=== PATIENT | male | born 1940 | race Caucasian/White ===

== ENCOUNTER 2017-06-22 18:02 | Inpatient (IN) ==
[2017-06-22] MEDS ORDERED: Naloxone 0.4 MG/ML INJ IVP PRN (22:58)
[2017-06-22] MEDS ORDERED: traMADol 50 MG TABLET PO PRN (22:58)
[2017-06-22] MEDS ORDERED: Acetaminophen 325 MG TABLET PO PRN (22:58)
[2017-06-22] MEDS ORDERED: Albuterol 2.5 MG/3 ML NEBULIZER IH PRN (22:58)
--- NOTE | 2017-06-22 23:07 | Internal Med History&Physical ---
Date of Encounter: 06/22/17 Time of Encounter: 22:20 Internal Medicine - H&P: HPI Chief complaint: cough; wheeze; SOB Admitted From: Hospital to Hospital Transfer Plans for Post Hospital Care: Home History of present illness: Mr. Cox is a 77 year old male who presents in transfer from [facility] ER for concerns of COPD and pneumonia. He presented there after a 2 week history of coughing, wheezing, dyspnea, subjective fevers, and chills. He was found to have pneumonia on x-ray and clinical exam. He also had COPD exacerbation. He was transferred to [facility] for ongoing care and treatment. On my assessment of the patient, he states he feels much better. He was hypoxemic at [facility] and has improved significantly with oxygen placement. He also received some aerosols and has started to breathe better and has less coughing and wheezing now. He states he has a history of COPD and is a former smoker. He stopped smoking over 10 years ago. He has not seen a doctor in 10 years. He takes no medications and is very active. However, over the last 3 weeks or so, he has had difficulty breathing and has developed significant wheezing and coughing with exertion. He has had several ill contacts in recent weeks, including influenza. He denies myalgias or bony aches but is complaining of some subjective fevers. Appetite and fluid intake have been stable. He denies any vomiting or diarrhea. Past Med Surg Social Fam HX - Past Medical History Attestation: Yes The following information was validated with the patient. Source: patient, obtained from family, other ([facility] records) Medical history: COPD Psychiatric history: no psych history - Past Surgical History Surgical History: no surgical history - Social History Smoking Status: Former smoker Smokeless Tobacco Status: No Alcohol use: none Drug use: none Occupational status: retired Current living situation: Home - Independent Activity Level: Independent ambulation, Uses cane/walker Recent Out of Country Travel Within the Last 8 Weeks: No - Family History Father Hx Family Cardiac Disorders: Yes (htn) Hx Family Endocrine Disorder: Yes (dm) Mother Hx Family Cardiac Disorders: Yes (htn, chf) Internal Medicine - H&P: Meds No Known Home Drugs 06/22/17 [History] 3 Allergy/AdvReac Type Severity Reaction Status Date / Time Penicillins Allergy Hives Verified 06/22/17 16:31 Sulfa (Sulfonamide Allergy Hives Verified 06/22/17 16:31 Antibiotics) - Constitutional Constitutional: chills, fatigue, fever(s), no night sweats - EENT Eyes: no blurry vision, no change in vision Ears: no ear pain, no tinnitus Nose, mouth and throat: no nasal congestion, no sinus pressure, no sore throat - Cardiovascular Cardiovascular ROS IM: no chest pain, no edema, no orthopnea, no paroxysmal nocturnal dyspnea, no syncope - Respiratory Respiratory: cough, dyspnea, wheezing, chest congestion, excessive phlegm production, change in phlegm color, no hemoptysis - Gastrointestinal Gastrointestinal: no abdominal pain, no diarrhea, no heartburn, no hematemesis, no hematochezia, no melena, no nausea, no vomiting - Genitourinary Genitourinary ROS male: no dysuria, no flank pain, no hematuria - Musculoskeletal Musculoskeletal ROS IM: arthralgias, no back pain, no myalgias - Integumentary Integumentary IM: no rash, no jaundice - Neurological Neurological ROS: no dizziness, no focal weakness, no frequent falls, no headache(s) - Psychiatric Psychiatric: no anxiety, no depression - Endocrine Endocrine IM: no polydipsia, no polyuria - Hematologic/Lymphatic Hematologic/Lymphatic: no easy bruising, no lymphadenopathy - Allergic/Immunologic Allergic/Immunologic: wheezing, no GI upset with certain foods - Constitutional Vitals: Temp Pulse Resp BP Pulse Ox 99.4 F 105 16 136/70 91 06/22/17 20:22 06/22/17 20:22 06/22/17 20:22 06/22/17 20:22 06/22/17 20:22 General appearance: Present: cooperative, A&O X 3, pleasant, no acute distress, answers questions appropriately - Head Head exam: Present: atraumatic, normal inspection - Eye Eye exam: Present: EOMI, PERRL. Absent: scleral icterus Pupils: Present: normal accommodation - ENT ENT exam: Present: normal exam, normal oropharynx - Neck Neck exam general surgery: Present: full ROM, supple. Absent: tenderness, nuchal rigidity, thyromegaly - Respiratory Respiratory exam: Present: prolonged expiratory phase, rales (left base), respiratory distress (mild), rhonchi, wheezes, tachypnea. Absent: chest wall tenderness - Cardiovascular Cardiovascular exam: Present: distant heart sounds, RRR, +S1, +S2. Absent: diastolic murmur, systolic murmur - GI/Abdominal GI/Abdominal exam: Present: normal bowel sounds, soft. Absent: guarding, hepatomegaly, mass, rebound, splenomegaly, tenderness - Extremities Exam Extremities exam: Present: normal capillary refill, warm, radial pulses palpable and symmetrical. Absent: joint swelling, pedal edema, tenderness - Back Exam Back exam: Present: normal inspection. Absent: CVA tenderness (L), CVA tenderness (R) - Neurological Exam Neurological exam: Present: alert, CN II-XII intact, oriented X3, no focal deficits - Psychiatric Psychiatric exam: Present: normal affect, normal mood - Skin Skin exam: Present: dry, warm. Absent: rash Internal Med - H&P Results - Labs Labs: I reviewed his labs from [facility] and they include the following: WBC 12.5 Hemoglobin 12.0 Hematocrit 34.4 Platelet count 382 Sodium 136 Potassium 3.8 Chloride 99 Carbon dioxide 31 BUN 13 Creatinine 0.72 Glucose 127 - Diagnostic Studies Chest x-ray Status: image reviewed by me (LLL infiltrate) - Assessment and plan (1) Pneumonia Current Visit: Yes Status: Acute Assessment and plan: 1. Patient had blood cultures drawn at [facility] and received a dose of antibiotics there. 2. Continue oxygen and IV antibiotics and follow clinically. 3. Aerosols as needed for wheezing. Qualifiers: Pneumonia type: due to unspecified organism Laterality: left Lung location: lower lobe of lung Qualified Code(s): J18.1 - Lobar pneumonia, unspecified organism (2) Acute exacerbation of chronic obstructive pulmonary disease (COPD) Current Visit: Yes Status: Acute Assessment and plan: 1. Will treat with IV steroids, oxygen, and aerosols (scheduled and PRN). 2. Monitor clinically and adjust meds as needed. 3. Patient may require home oxygen. 4. Patient has no PCP and will need referral for ongoing primary care. (3) DVT prophylaxis Current Visit: Yes Status: Acute Assessment and plan: 1. Heparin SQ.
[2017-06-22] MEDS ORDERED: Ipratropium/Albuterol Neb 3 ML ONE (23:52)
[2017-06-22] MEDS: Ipratropium/Albuterol Neb 3 ML IH SCH (23:54)
[2017-06-23] MEDS: methylPREDNISolone 125 MG/2 ML VIAL IVP SCH ×2 (00:04→07:31)
[2017-06-23] MEDS: *HR* Heparin 5,000 UNIT/ML VIAL SQ SCH ×3 (00:04→16:35)
[2017-06-23] MEDS: Ipratropium/Albuterol Neb 3 ML IH SCH ×6 (03:55→23:47)
[2017-06-23 04:41] LABS: Basophils % 0.2 %; Hematocrit 38.9 % (37.5-50.1); Hemoglobin 12.7 g/dL (12.9-16.9); Immature Granulocytes % 0.9 % (0-4); Lymphocytes # 0.6 K/mcL (0.6-4.6); Lymphocytes % 5.2 %; Mean Corpuscular HGB Conc 32.6 g/dL (31.6-35.5); Mean Corpuscular Hemoglobin 31.8 pg (28.0-33.3); Mean Corpuscular Volume 97.3 fL (83.0-100.0); Mean Platelet Volume 9.4 fL (9.4-12.4); Monocytes # 0.2 K/mcL (0.0-1.3); Monocytes % 1.9 %; Neutrophils # 10.4 K/mcL (1.6-8.9); Platelet Count 397 K/mcL (140-400); Red Cell Distribution Width 12.5 % (11.5-14.5); Segmented Neutrophils % 91.8 %
[2017-06-23 04:56] LABS: Alanine Aminotransferase 22 Units/L (7-52); Albumin 3.6 g/dL (3.5-5.7); Albumin/Globulin Ratio 0.9 (1.1-2.2); Alkaline Phosphatase 65 Units/L (34-104); Aspartate Amino Transferase 18 Units/L (13-39); BUN/Creatinine Ratio 17 (6-26); Bilirubin,Total 0.3 mg/dL (0.3-1.0); Blood Urea Nitrogen 12 mg/dL (8-23); Calcium 8.9 mg/dL (8.6-10.3); Carbon Dioxide 39 mEq/L (23-29); Chloride 100 mEq/L (98-107); Globulin 3.8 g/dL (2.4-3.5); Glucose 220 mg/dL (70-105); Magnesium 2.2 mg/dL (1.6-2.6); Osmolality,Calculated 297 (280-300); Potassium 3.9 mEq/L (3.5-5.1); Sodium 140 mEq/L (136-145); Total Protein 7.4 g/dL (6.4-8.9); eGFR For African Americans > 60 (> 60); eGFR For Non-African Americans > 60 (> 60)
[2017-06-23] MEDS: Levofloxacin 500 MG/100 ML 500 MG/100 ML BAG IVPB SCH (07:31)
--- NOTE | 2017-06-23 11:15 | Internal Med Progress Note ---
Date of Encounter: 06/23/17 Time of Encounter: 09:10 - Assessment and plan (1) Pneumonia Current Visit: Yes Status: Inactive Assessment and plan: Pt with fatigue, productive cough, fever, chills, and increasing SOB 1 week prior to admission. Patchy bibasilar airspace disease, left greater than right. Findings may represent pneumonia. Mild leukocytosis. no fever, tachycardia. Does not meet SIRs or Sepsis criteria. Pt is requiring supplemental 02, does not normally require 02. Lungs with faint wheezing in posterior lung watkins. 02 as needed to maintain sats > 92% Continue IV antibiotics, bronchodilators, and IV steroids Guaifenesin prn cough Monitor labs and vital signs. Qualifiers: Pneumonia type: due to unspecified organism Laterality: left Lung location: lower lobe of lung Qualified Code(s): J18.1 - Lobar pneumonia, unspecified organism (2) Acute exacerbation of chronic obstructive pulmonary disease (COPD) Current Visit: Yes Status: Acute Assessment and plan: Plan as above. (3) DVT prophylaxis Current Visit: Yes Status: Acute Assessment and plan: Heparin SQ. (4) Acute respiratory failure Current Visit: Yes Status: Acute Assessment and plan: Pt is requiring supplemental 02 to maintain sats > 92%. Titrate prn. Pt does not have home 02. Qualifiers: Respiratory failure complication: unspecified whether with hypoxia or hypercapnia Qualified Code(s): J96.00 - Acute respiratory failure, unspecified whether with hypoxia or hypercapnia - Time Spent With Patient Total time spent is greater than 50% in coordination of care (as documented) at patient's floor/unit and/or counseling patient: less than 15 minutes - Subjective Interval history: Pt was seen and assessed at bedside at 0910. Pt is alert and awake, states that he is feeling tired, but better than on arrival. He still reports productive cough an SOB, but is better than on arrival. Pt states that he lives at home alone and does not really have family or friends who can help him. Patient is agreeable to discussing home health after discharge. He denies any headache, blurred vision, nausea or vomiting, no chest pain, no abdominal pain. - Constitutional Vitals: Temp Pulse Resp BP Pulse Ox 98.5 F 91 16 143/70 93 06/23/17 11:08 06/23/17 11:08 06/23/17 11:08 06/23/17 11:08 06/23/17 11:08 General appearance: Present: cooperative, A&O X 3, pleasant, no acute distress, answers questions appropriately - Head Head exam: Present: atraumatic, normal inspection, normocephalic - Eye Eye exam: Present: normal appearance, conjuntiva pink, sclera anicteric - Neck Neck exam general surgery: Present: supple, trachea midline. Absent: lymphadenopathy - Respiratory Respiratory exam: Present: CTAB. Absent: accessory muscle use, rales, rhonchi, wheezes - Cardiovascular Cardiovascular exam: Present: RRR, +S1, +S2. Absent: diastolic murmur, gallop, rubs, systolic murmur - GI/Abdominal GI/Abdominal exam: Present: normal bowel sounds, soft. Absent: distended, hepatomegaly, tenderness - Extremities Exam Extremities exam: Present: normal capillary refill, normal inspection, warm, radial pulses palpable and symmetrical. Absent: calf tenderness, cyanotic, pedal edema, tenderness - Neurological Exam Neurological exam: Present: alert, oriented X3, no focal deficits. Absent: facial droop, speech deficit - Skin Skin exam: Present: dry, intact, normal color, warm. Absent: rash Internal Medicine: Result - Labs CBC & Chem 7: 06/23/17 04:12 06/23/17 04:12 Labs: Short CBC 06/23/17 Range/Units 04:12 WBC 11.3 H (4.3-11.1) K/mcL Hgb 12.7 L (12.9-16.9) g/dL Hct 38.9 (37.5-50.1) % Plt Count 397 (140-400) K/mcL Neutrophils # 10.4 H (1.6-8.9) K/mcL BMP 06/23/17 04:12 Sodium 140 Potassium 3.9 Chloride 100 Carbon Dioxide 39 H BUN 12 Creatinine 0.72 Glucose 220 H Calcium 8.9 Liver Function 06/23/17 Range/Units 04:12 Total Bilirubin 0.3 (0.3-1.0) mg/dL AST 18 (13-39) Units/L ALT 22 (7-52) Units/L Alkaline Phosphatase 65 (34-104) Units/L Albumin 3.6 (3.5-5.7) g/dL Consult Discharge Plan - Plan Referrals: NONE,PCP [Primary Care Provider] - [facility],NADJA [Other]
[2017-06-23] MEDS: MethylPREDNISolone 40 MG/ML VIAL IVP SCH (16:35)
[2017-06-23] MEDS ORDERED: Melatonin 3 MG TABLET PO PRN (20:44)
[2017-06-24] MEDS: MethylPREDNISolone 40 MG/ML VIAL IVP SCH ×3 (00:06→18:30)
[2017-06-24] MEDS: Ipratropium/Albuterol Neb 3 ML IH SCH ×6 (03:51→23:31)
[2017-06-24 05:17] LABS: Basophils % 0.2 %; Hematocrit 33.4 % (37.5-50.1); Hemoglobin 11.3 g/dL (12.9-16.9); Immature Granulocytes % 1.2 % (0-4); Lymphocytes # 0.7 K/mcL (0.6-4.6); Lymphocytes % 2.8 %; Mean Corpuscular HGB Conc 33.8 g/dL (31.6-35.5); Mean Corpuscular Hemoglobin 32.9 pg (28.0-33.3); Mean Corpuscular Volume 97.4 fL (83.0-100.0); Mean Platelet Volume 9.8 fL (9.4-12.4); Monocytes # 0.8 K/mcL (0.0-1.3); Monocytes % 3.4 %; Neutrophils # 22.3 K/mcL (1.6-8.9); Platelet Count 412 K/mcL (140-400); Red Blood Count 3.43 M/mcL (4.19-5.50); Red Cell Distribution Width 12.6 % (11.5-14.5); Segmented Neutrophils % 92.4 %
[2017-06-24 05:31] LABS: Basophils # 0.1 K/mcL (0.0-0.2)
[2017-06-24 05:42] LABS: BUN/Creatinine Ratio 28 (6-26); Blood Urea Nitrogen 18 mg/dL (8-23); Carbon Dioxide 30 mEq/L (23-29); Chloride 104 mEq/L (98-107); Potassium 4.7 mEq/L (3.5-5.1); Sodium 140 mEq/L (136-145)
[2017-06-24 05:43] LABS: Calcium 8.6 mg/dL (8.6-10.3); Glucose 168 mg/dL (70-105); Osmolality,Calculated 296 (280-300); eGFR For African Americans > 60 (> 60); eGFR For Non-African Americans > 60 (> 60)
[2017-06-24 05:59] LABS: Platelet Estimate Normal (Normal)
[2017-06-24] MEDS: *HR* Heparin 5,000 UNIT/ML VIAL SQ SCH ×2 (06:07→18:30)
[2017-06-24] MEDS: Levofloxacin 500 MG/100 ML 500 MG/100 ML BAG IVPB SCH (09:42)
--- NOTE | 2017-06-24 14:31 | Internal Med Progress Note ---
Date of Encounter: 06/24/17 Time of Encounter: 10:10 - Assessment and plan (1) Pneumonia Current Visit: Yes Status: Inactive Assessment and plan: Pt with fatigue, productive cough, fever, chills, and increasing SOB 1 week prior to admission. Improved. Pt reports STAPLETON, overall fatigue, productive cough, wheezing still. Patchy bibasilar airspace disease, left greater than right. Findings may represent pneumonia. Increased leukocytosis, likely due to IV steroids, which have been decreased. no fever, tachycardia. Pt is requiring supplemental 02, does not normally require 02. Will walk test tomorrow prior to discharge. Lungs with faint wheezing in all lung wtakins. 02 as needed to maintain sats > 92% Continue IV antibiotics, bronchodilators, and IV steroids Guaifenesin prn cough Monitor labs and vital signs. Qualifiers: Pneumonia type: due to unspecified organism Laterality: left Lung location: lower lobe of lung Qualified Code(s): J18.1 - Lobar pneumonia, unspecified organism (2) Acute exacerbation of chronic obstructive pulmonary disease (COPD) Current Visit: Yes Status: Acute Assessment and plan: Plan as above. (3) DVT prophylaxis Current Visit: Yes Status: Acute Assessment and plan: Heparin SQ TID. Pt is also ambulatory. (4) Acute respiratory failure Current Visit: Yes Status: Acute Assessment and plan: Pt is requiring supplemental 02 to maintain sats > 92%. Titrate prn. Pt does not have home 02, will walk test tomorrow if he cannot be weaned prior to discharge. Qualifiers: Respiratory failure complication: unspecified whether with hypoxia or hypercapnia Qualified Code(s): J96.00 - Acute respiratory failure, unspecified whether with hypoxia or hypercapnia (5) Dyspnea on exertion Current Visit: Yes Status: Acute Assessment and plan: Pt reports new onset STAPLETON since becoming ill. Pt is requiring supplemental 02, will try to wean prior to discharge. Plan as above. (6) Fatigue Current Visit: Yes Status: Acute Assessment and plan: Likely secondary to pneumonia. Pt states that he normally gets around well at home and cares for himself without difficulty. Pt with new fatigue and STAPLETON. Pt stats that he lives alone and believes that he may have difficuty at home after discharge. Pt has been given a list of home health agencies and has spoken with SW. Qualifiers: Fatigue type: unspecified Qualified Code(s): R53.83 - Other fatigue - Time Spent With Patient Total time spent is greater than 50% in coordination of care (as documented) at patient's floor/unit and/or counseling patient: less than 15 minutes - Subjective Interval history: Pt was seen and assessed at bedside at 1010. Pt is alert and awake, states that he is feeling better today. Pt states that he has been up walking in the hallway with his daughter and gets SOB. Will assess pt for home 02 tomorrow. Pt remains wheezy in all lung watkins. STates that he and his daughter will make a decision about home health today so we can start working on it today. He denies any headache, blurred vision, nausea or vomiting, no chest pain, no abdominal pain. - Constitutional Vitals: Temp Pulse Resp BP Pulse Ox 98.3 F 95 17 124/68 95 06/24/17 10:59 06/24/17 10:59 06/24/17 11:35 06/24/17 10:59 06/24/17 11:35 General appearance: Present: cooperative, A&O X 3, pleasant, no acute distress, answers questions appropriately - Head Head exam: Present: atraumatic, normal inspection, normocephalic - Eye Eye exam: Present: normal appearance, conjuntiva pink, sclera anicteric - Neck Neck exam general surgery: Present: normal inspection, supple, trachea midline. Absent: lymphadenopathy - Respiratory Respiratory exam: Present: CTAB. Absent: accessory muscle use, rales, rhonchi, wheezes - Cardiovascular Cardiovascular exam: Present: RRR, +S1, +S2. Absent: diastolic murmur, gallop, rubs, systolic murmur - GI/Abdominal GI/Abdominal exam: Present: normal bowel sounds, soft. Absent: distended, hepatomegaly, tenderness - Extremities Exam Extremities exam: Present: normal capillary refill, normal inspection, warm, radial pulses palpable and symmetrical. Absent: calf tenderness, cyanotic, pedal edema, tenderness - Neurological Exam Neurological exam: Present: alert, oriented X3, no focal deficits. Absent: facial droop, speech deficit - Skin Skin exam: Present: dry, intact, normal color, warm. Absent: rash Internal Medicine: Result - Labs CBC & Chem 7: 06/24/17 04:28 06/24/17 04:28 Labs: Short CBC 06/24/17 Range/Units 04:28 WBC 24.1 H D (4.3-11.1) K/mcL Hgb 11.3 L (12.9-16.9) g/dL Hct 33.4 L (37.5-50.1) % Plt Count 412 H (140-400) K/mcL Neutrophils # 22.3 H (1.6-8.9) K/mcL BMP 06/24/17 04:28 Sodium 140 Potassium 4.7 Chloride 104 Carbon Dioxide 30 H BUN 18 Creatinine 0.64 L Glucose 168 H Calcium 8.6 Consult Discharge Plan - Plan Referrals: NONE,PCP [Primary Care Provider] - NADJA LEROY [Other]
[2017-06-25] MEDS: Ipratropium/Albuterol Neb 3 ML IH SCH ×3 (03:20→11:24)
[2017-06-25 04:52] LABS: Basophils # 0.1 K/mcL (0.0-0.2); Basophils % 0.2 %; Hematocrit 37.1 % (37.5-50.1); Hemoglobin 12.1 g/dL (12.9-16.9); Immature Granulocytes % 0.9 % (0-4); Lymphocytes # 0.6 K/mcL (0.6-4.6); Lymphocytes % 2.5 %; Mean Corpuscular HGB Conc 32.6 g/dL (31.6-35.5); Mean Corpuscular Hemoglobin 32.1 pg (28.0-33.3); Mean Corpuscular Volume 98.4 fL (83.0-100.0); Mean Platelet Volume 9.8 fL (9.4-12.4); Monocytes # 0.9 K/mcL (0.0-1.3); Monocytes % 3.5 %; Neutrophils # 22.8 K/mcL (1.6-8.9); Platelet Count 430 K/mcL (140-400); Red Blood Count 3.77 M/mcL (4.19-5.50); Red Cell Distribution Width 12.8 % (11.5-14.5); Segmented Neutrophils % 92.9 %
[2017-06-25 05:10] LABS: BUN/Creatinine Ratio 29 (6-26); Blood Urea Nitrogen 17 mg/dL (8-23); Calcium 8.7 mg/dL (8.6-10.3); Carbon Dioxide 31 mEq/L (23-29); Chloride 101 mEq/L (98-107); Glucose 149 mg/dL (70-105); Osmolality,Calculated 296 (280-300); Sodium 141 mEq/L (136-145); eGFR For African Americans > 60 (> 60); eGFR For Non-African Americans > 60 (> 60)
[2017-06-25 05:19] LABS: Platelet Estimate Increased (Normal); Toxic Granulation Present (Not Present)
[2017-06-25] MEDS: *HR* Heparin 5,000 UNIT/ML VIAL SQ SCH (05:52)
[2017-06-25] MEDS: MethylPREDNISolone 40 MG/ML VIAL IVP SCH (05:52)
[2017-06-25] MEDS ORDERED: predniSONE 20 MG TABLET PO SCH (09:00)
[2017-06-25] MEDS ORDERED: levoFLOXacin 750 MG TABLET PO SCH (09:00)
[2017-06-25 11:36] VITALS: BP 139/66
--- NOTE | 2017-06-25 12:24 | Discharge Summary ---
- NOTES TO OUTPATIENT PROVIDER Notes to Outpatient Provider: Pt was admitted and treated for pneumonia and COPD exacerbation. Pt is being discharged with continuation of antibiotic therapy, a steroid taper, nebulizer, Guaifenesin, and Duonebs. He also qualified for home 02. Orders not resulted at time of discharge: Pending orders 06/24/17 11:04 EKG [ECG 12 lead ECG] [ECG] Routine 06/26/17 04:00 Basic Metabolic Panel AM 0400 Complete Blood Count [HEME] AM 0400 Date of Encounter: 06/25/17 Time of Encounter: 09:15 - Discharge Diagnosis (1) Pneumonia Priority: Primary Status: Inactive Assessment and Plan: Pt states that he is feeling better. Lungs clear and diminished. Pt with moist cough. Pt is requiring supplemental 02, does not normally require 02. Qualified for home 02. Continue po antibiotics, bronchodilators, and po steroids Guaifenesin prn cough Qualifiers: Pneumonia type: due to unspecified organism Laterality: left Lung location: lower lobe of lung Qualified Code(s): J18.1 - Lobar pneumonia, unspecified organism (2) Acute exacerbation of chronic obstructive pulmonary disease (COPD) Priority: Secondary Status: Acute Assessment and Plan: Plan as above. (3) Acute respiratory failure Priority: Secondary Status: Acute Assessment and Plan: Pt is requiring supplemental 02 to maintain sats > 92%. Titrate prn. Pt did not have home 02 prior to admission, qualified for home 02 at 2L/Nc Qualifiers: Respiratory failure complication: unspecified whether with hypoxia or hypercapnia Qualified Code(s): J96.00 - Acute respiratory failure, unspecified whether with hypoxia or hypercapnia (4) Dyspnea on exertion Priority: Secondary Status: Acute Assessment and Plan: Pt reports new onset STAPLETON since becoming ill. Plan as above. (5) Fatigue Priority: Secondary Status: Acute Assessment and Plan: Likely secondary to pneumonia. Pt states that he normally gets around well at home and cares for himself without difficulty. Pt with new fatigue and STAPLETON. Pt states that he lives alone and believes that he may have difficuty at home after discharge. Discussed home health care with both pt and daughter. Pt states that he doesn't know if he can have any help at home. Daughter states that he has several family members and her who can help him. Pt has been given a list of home health agencies and has spoken with SW. He has declined home health at this time. Qualifiers: Fatigue type: unspecified Qualified Code(s): R53.83 - Other fatigue (6) DVT prophylaxis Priority: Secondary Status: Acute Assessment and Plan: Heparin SQ. Pt is ambulatory in his room and around unit. (7) Leukocytosis Priority: Secondary Status: Acute Assessment and Plan: Pt with leukocytosis, likely due to high dose steroid use. IV steroid use was tapered and pt will go home on po steroid taper. Pt afebrile, normotensive, no tachycardia, no tachypnea, or respiratory distress. Clinically he appears well and feels like he is back to his baseline. Pt is aware that he should follow up with PCP and get established with PCP this week. Qualifiers: Leukocytosis type: unspecified Qualified Code(s): D72.829 - Elevated white blood cell count, unspecified Hospital course: Mr. Cox is a 77 year old male Discharge discussed with: patient, family, nurse - Time Spent with Patient Total time spent providing and/or coordinating discharge services: Less than 30 minutes - Discharge Medications Prescriptions: Ipratropium/Albuterol Neb [Duoneb] 3 ml IH [id number] PRN #60 inhsol PRN Reason: Wheezing levoFLOXacin [Levaquin] 750 mg PO DAILY #3 tablet predniSONE [PredniSONE] 10 mg PO DAILY #27 tablet Home Medications: Ipratropium/Albuterol Neb [Duoneb] 3 ml IH [id number] PRN #60 inhsol 06/25/17 [Rx] levoFLOXacin [Levaquin] 750 mg PO DAILY #3 tablet 06/25/17 [Rx] predniSONE [PredniSONE] 10 mg PO DAILY #27 tablet 06/25/17 [Rx] Allergies/Adverse Reactions: 3 Allergy/AdvReac Type Severity Reaction Status Date / Time Penicillins Allergy Hives Verified 06/22/17 16:31 Sulfa (Sulfonamide Allergy Hives Verified 06/22/17 16:31 Antibiotics) Date of admission: 06/23/17 17:39 Primary care physician: PCP NONE Consults: 06/23/17 11:17 Consult to Endoscopy Rn [CONS] Routine Reason for SW Consult: Could you please talk to him about home health after discharge? Pt has pneumonia, lives alone. He has never been sick before, has no PCP and has not seen a dr in 10 years. Anticipate needs at home after discharge. Discharging clinician: Aixa Smyth Anticipated date of discharge: 06/25/17 - Constitutional Vitals: Temp Pulse Resp BP Pulse Ox 99.0 F 97 16 139/66 95 06/25/17 11:34 06/25/17 11:34 06/25/17 11:34 06/25/17 11:34 06/25/17 11:34 General appearance: Present: cooperative, A&O X 3, pleasant, no acute distress, answers questions appropriately - Head Head exam: Present: atraumatic, normal inspection, normocephalic - Eye Eye exam: Present: normal appearance, conjuntiva pink, sclera anicteric - Neck Neck exam general surgery: Present: supple, trachea midline. Absent: lymphadenopathy, tenderness - Respiratory Respiratory exam: Present: chest wall tenderness, decreased breath sounds, CTAB. Absent: accessory muscle use, rales, respiratory distress, rhonchi, wheezes - Cardiovascular Cardiovascular exam: Present: RRR, +S1, +S2. Absent: diastolic murmur, gallop, rubs, systolic murmur - GI/Abdominal GI/Abdominal exam: Present: normal bowel sounds, soft, no peritoneal signs. Absent: distended, hepatomegaly, tenderness - Extremities Exam Extremities exam: Present: normal capillary refill, normal inspection, warm, radial pulses palpable and symmetrical. Absent: calf tenderness, cyanotic, pedal edema, tenderness - Neurological Exam Neurological exam: Present: alert, oriented X3, no focal deficits, pronater drift. Absent: facial droop, speech deficit - Skin Skin exam: Present: dry, intact, normal color, warm. Absent: rash - Patient Status Disposition: Home, Self-Care Condition: Good Functional capacity at discharge: independent ambulation Overall status at discharge: patient is progressing back to baseline - Discharge Instructions Follow Up With: NADJA LEROY [Other] NONE,PCP [Primary Care Provider] - Additional Instructions: Take your medications as directed. Return to the ER as needed for any other problems or concerns. If you begin having fevers, chills, nausea vomiting, worse shortness of breath, coughing up blood, or confusion, call 911 and go to the ER immediately. Follow up with your PCP in the next 7-10 days for a recheck. REturn to your normal diet and activities as tolerated. - Diet and Activity Activity: increase activity as tolerated Diet: advance to your usual diet
--- NOTE | 2017-06-26 13:14 | Electrocardiograph Report ---
[address] [address] Test Date: 2017-06-24 Pat Name: Fredo Cox Department: 113 Room: 3B Gender: M Guest Relations Agent: : [id number] Requested By: Jason Aldana MD Order Number: [id number] Reading MD: Mark Harrington Measurements Intervals [place] Rate: 95 P: 43 VT: 126 QRS: 38 QRSD: 95 T: 47 QT: 337 QTc: 390 Interpretive Statements SINUS RHYTHM Electronically Signed On 06-26-2017 9:56:43 EDT by Mark Harrington
== END 2017-06-25 16:20 | disposition home or self-care (01) | DRG 193 ==
LOC: 3BNU
PROVIDERS: ADMIT Nurse Practitioner Family; ATTEND Nurse Practitioner Family